=== PATIENT | male | born 1965 | race African-American/Black ===

== ENCOUNTER 2017-08-02 07:07 | Day surgery (SDC) | payer OTHER ==
[2017-07-31 14:45] VITALS: BMI 29.8
[2017-08-02] MEDS ORDERED: DEXAMETHASONE SOD PHOSPHATE/PF 10 MG/ML SDV ONE (08:42)
[2017-08-02] MEDS ORDERED: MIDAZOLAM HCL 2 MG/2 ML SINGLE DOSE VIAL ONE ×4 (08:52→10:12)
[2017-08-02] MEDS ORDERED: ceFAZolin SODIUM 1 GM VIAL ONE (09:46)
[2017-08-02] MEDS ORDERED: oxyCODONE HCL 10 MG SUSTAINED ACTING TABLET PO ONE (10:34)
[2017-08-02] MEDS ORDERED: oxyCODONE HCL 5 MG TABLET PO PRN ×3 (10:34→11:28)
--- NOTE | 2017-08-02 10:41 | OP ---
Operative Note - Note: Operative Date: 08/02/17 Pre-Operative Diagnosis: Left shoulder degenerative cuff disease, AC Joint OA Operation: Left shoulder arthroscopy .... distal clavicle excision, decompression, debridement Post-Operative Diagnosis: Same as Pre-op Surgeon: Roman Solis Anesthesiologist/OUTSIDE SALES CONSULTANT: Enoch Rios Anesthesia: General Operative Report Dictated: Yes
--- NOTE | 2017-08-02 10:41 | DS ---
Physical Examination Vital Signs: Vital Signs Temperature 98.3 F 08/02/17 07:40 Pulse Rate 72 08/02/17 07:40 Respiratory Rate 16 08/02/17 07:40 Blood Pressure 144/90 08/02/17 07:40 O2 Sat by Pulse Oximetry (%) 97 08/02/17 07:54 Discharge Summary Reason For Visit: LT SHOULDER AC JOINT ARTHROSIS, RTC TEAR, BICEPS T Condition: Good - Instructions Diet, Activity, Other Instructions: Post Operative Instructions: Shoulder Arthroscopy Dr Roman Solis 1. Pain following a Shoulder Arthroscopy is variable and can be significant. Some patients will have more pain than others. You have been provided with a prescription for medication that contains a narcotic. You are not allowed to drive while on this medication. You should NOT take Tylenol (Acetaminophen) when taking the pain medication ( it will result in an overdose). Feel free to take medications such as Ibuprofen or Naprosyn in addition to the pain medicine if you do not have any problems with the NSAID class of medications. 2. Apply ice to the shoulder for 15 minutes every hour. You may continue this for as many days as necessary. 3. You may find sleeping on an incline (reclining chair) to be more comfortable for the first few days. 4. You may remove your sling when the arm is comfortable. 5. You may use the arm as tolerated. 6. You may remove the bandages in 48 hours. You may shower at that point. 7. Place band-aids on the incisions after your shower.Do not put any creams or lotions on the incision until after the sutures are removed. 8. Please call the office to schedule a visit to have your sutures removed. 9. If for any reason you believe you may have an infection or are concerned, please feel free to call me. I can be reached through our office number 24 hours a day. 10. Please call our office with any questions; we will review the surgical findings during your post-operative visit. Disposition: HOME - Home Medications Comprehensive Discharge Medication List: Ambulatory Orders Atorvastatin Ca [Lipitor] 80 mg PO DAILY 12/16/14 Celecoxib [Celebrex] 200 mg PO DAILY 12/16/14 Clopidogrel Bisulfate [Plavix -] 75 mg PO DAILY 12/16/14 Lansoprazole [Prevacid -] 30 mg PO DAILY 12/16/14 Oxycodone HCl [Oxycodone HCl ER] 10 mg PO Q4H PRN #100 tab.er.12h 12/17/14 Apixaban [Eliquis] 7.5 mg PO BID 07/31/17 Tamsulosin HCl 0.4 mg PO DAILY 07/31/17
--- NOTE | 2017-08-02 10:47 | SURG ---
Surgery Rail Car Operator Note Rail Car Operator: Jonas Zheng PA-C Date of Service: 08/02/17 Diagnosis: Left shoulder degenerative cuff disease, AC Joint OA Procedure: Left shoulder arthroscopy, distal clavicle excision, decompression, debridement I was present for the entirety of the operative procedure. For further detail, please refer to operative report. Visit type - Case Type Case Type: Scheduled Admission - New patient This patient is new to me today: Yes Date on this admission: 08/02/17
[2017-08-02] MEDS ORDERED: ONDANSETRON 4 MG/2 ML VIAL IVPUSH PRN (12:30)
[2017-08-02 14:07] VITALS: TEMP 98
[2017-08-02 14:20] VITALS: BP 135/81; PULSE 71
--- NOTE | 2017-08-05 15:39 | PATH ---
Surgical Pathology Report Patient Name: SHARON RODRIGUEZ [facility]. Rec. #: [id number] /Age/Gender: 1965 (Age: 52) / M Account: [id number] Location: [facility] Taken: 08/02/2017 Received: 08/02/2017 Reported: 08/05/2017 Physicians: Roman Solis M.D. Specimen(s) Received SHAVINGS LEFT SHOULDER Clinical History Left shoulder AC joint arthrosis, RTC tear Final Diagnosis SHOULDER, LEFT, ARTHROSCOPIC SHAVINGS: FRAGMENTS OF CARTILAGE, BONE AND FIBROSYNOVIALTISSUE. Electronically Signed Cindy Stephens M.D. Gross Description Received in formalin, labeled "shavings left shoulder," is a 2.0 x 2.0 x 0.4 cm. aggregate of giles-yellow soft tissue fragments. Totally submitted in one cassette. [facility]/08/02/2017 [facility]/08/02/2017
== END 2017-08-02 12:30 | disposition home or self-care (01) ==
LOC: FASU 07:07
PROVIDERS: ATTEND Orthopaedic Surgery
PROC: 0PBB4ZZ Excision of Left Clavicle, Percutaneous Endoscopic Approach (ICD-10-PCS; principal; 2017-08-02 09:56)
PROC: 0RBK4ZZ Excision of Left Shoulder Joint, Percutaneous Endoscopic Approach (ICD-10-PCS; 2017-08-02 09:56)
DX: M19.012 Primary osteoarthritis, left shoulder (principal); M75.52 Bursitis of left shoulder; M75.102 Unspecified rotator cuff tear or rupture of left shoulder, not specified as traumatic
CPT/HCPCS: 88304-TC; 94760

== ENCOUNTER 2018-01-24 07:45 | Day surgery (SDC) | payer OTHER ==
[2018-01-24 08:37] VITALS: BMI 31.8
[2018-01-24 13:45] VITALS: TEMP 98.6
[2018-01-24 14:16] VITALS: BP 128/72; PULSE 72
== END 2018-01-24 14:18 | disposition home or self-care (01) ==
LOC: FASU 07:45
PROVIDERS: ATTEND Orthopaedic Surgery
PROC: 0LQ24ZZ Repair Left Shoulder Tendon, Percutaneous Endoscopic Approach (ICD-10-PCS; principal; 2018-01-24)
PROC: 0RNK4ZZ Release Left Shoulder Joint, Percutaneous Endoscopic Approach (ICD-10-PCS; 2018-01-24)
PROC: 0PBB4ZZ Excision of Left Clavicle, Percutaneous Endoscopic Approach (ICD-10-PCS; 2018-01-24)
DX: M75.102 Unspecified rotator cuff tear or rupture of left shoulder, not specified as traumatic (principal); M19.012 Primary osteoarthritis, left shoulder
CPT/HCPCS: 88304-TC; 94760

== ENCOUNTER 2021-11-06 12:58 | Inpatient (IN) | payer OTHER ==
[2021-11-06] MEDS ORDERED: PIPERACILLIN/TAZOB 3.375 GM 3.375 GM in DEXTROSE 5%-WATER - 50 ML IVPB ONE (13:41)
[2021-11-06] MEDS ORDERED: VANCOMYCIN 1 GRAM (PRE-DOCKED) 1,000 MG/250 ML BAG IVPB ONE (13:59)
[2021-11-06] MEDS ORDERED: PIPERACILLIN/TAZOB 3.375 GM 3.375 GM/50 ML BAG IVPB ONE (13:59)
[2021-11-06] MEDS ORDERED: VANCOMYCIN 1,000 MG in DEXTROSE 5%-WATER - 250 ML IVPB ONE (15:10)
[2021-11-06 15:19] LABS: BASO % 0.6 % (0-2.0); EOS % 0.7 % (0-4.5); HEMATOCRIT 38.3 % (35.4-49); HEMOGLOBIN 12.3 GM/dL (11.7-16.9); LYMPH % 36.5 % (8-40); MCH 29.5 pg (25.7-33.7); MCHC 32.1 g/dl (32.0-35.9); MEAN CELL VOLUME 91.8 fl (80-96); MEAN PLT VOLUME 9.2 fl (7.5-11.1); MONO % 8.2 % (3.8-10.2); PLATELET COUNT 187 10^3/uL (134-434); RBC 4.17 M/mm3 (4.00-5.60); RDW 14.1 % (11.9-15.9); WHITE BLOOD COUNT 5.5 K/mm3 (4.0-10.0)
[2021-11-06 15:26] LABS: INR 1.13 (0.83-1.09)
[2021-11-06 15:28] LABS: ACTIVATED PTT 35.4 SECONDS (25.2-36.5)
[2021-11-06 15:43] LABS: CALCIUM 9.2 mg/dL (8.5-10.1)
[2021-11-06 15:44] LABS: ALBUMIN 3.6 g/dl (3.4-5.0); BLOOD UREA NITROGEN 16.4 mg/dL (7-18)
[2021-11-06 15:47] LABS: CREATININE 0.8 mg/dL (0.55-1.3)
[2021-11-06 15:48] LABS: BILIRUBIN,TOTAL 0.4 mg/dL (0.2-1)
[2021-11-06 15:49] LABS: TOT PROT 6.5 g/dl (6.4-8.2)
[2021-11-06] MEDS ORDERED: ACETAMINOPHEN 1000 MG/100 ML BAG IVPB PRN (17:44)
[2021-11-06] MEDS ORDERED: NICOTINE 14 MG/24 HOURS TOPICAL PATCH TD ONE (17:44)
[2021-11-06] MEDS: NICOTINE 21 MG/24 HOURS TOPICAL PATCH TD SCH (19:48)
[2021-11-06] MEDS ORDERED: PIPERACILLIN/TAZOBACTAM 4.5 GM VIAL IVPB ONE (21:00)
[2021-11-06] MEDS ORDERED: DEXTROSE 5%-WATER 100 ML IVPB ONE (21:00)
[2021-11-06] MEDS: oxyCODONE HCL 5 MG TABLET PO PRN (21:05)
[2021-11-06] MEDS: APIXABAN 5 MG TABLET PO SCH (21:05)
[2021-11-06] MEDS: ATORVASTATIN CA 80 MG TABLET (FP) PO SCH (21:05)
[2021-11-06] MEDS ORDERED: APIXABAN 5 MG TABLET PO SCH (22:00)
[2021-11-06] MEDS: PIPERACILLIN/TAZOB 4.5 GM 4.5 GM in DEXTROSE 5%-WATER 100 ML IVPB SCH (22:26)
[2021-11-07 00:28] VITALS: BMI 30.9
[2021-11-07] MEDS ORDERED: PIPERACILLIN/TAZOBACTAM 4.5 GM VIAL IVPB ONE (04:22)
[2021-11-07] MEDS ORDERED: DEXTROSE 5%-WATER 100 ML IVPB ONE (04:23)
[2021-11-07] MEDS: PIPERACILLIN/TAZOB 4.5 GM 4.5 GM in DEXTROSE 5%-WATER 100 ML IVPB SCH ×4 (04:39→09:45)
[2021-11-07] MEDS ORDERED: APIXABAN 5 MG TABLET ONE (06:24)
[2021-11-07] MEDS ORDERED: APIXABAN 2.5 MG TABLET ONE (06:25)
[2021-11-07] MEDS: APIXABAN PO SCH (06:26)
[2021-11-07] MEDS: TAMSULOSIN HCL 0.4 MG CAP PO SCH (06:30)
[2021-11-07] MEDS ORDERED: DEXTROSE 5%-WATER - 50 ML IVPB ONE ×2 (09:37→18:53)
[2021-11-07] MEDS ORDERED: PIPERACILLIN/TAZOBACTAM 3.375 GM VIAL IVPB ONE ×2 (09:37→18:53)
[2021-11-07] MEDS: NICOTINE 21 MG/24 HOURS TOPICAL PATCH TD SCH (09:47)
[2021-11-07] MEDS: oxyCODONE HCL 5 MG TABLET PO PRN ×2 (09:47→16:47)
[2021-11-07] MEDS: PIPERACILLIN/TAZOB 3.375 GM 3.375 GM in DEXTROSE 5%-WATER - 50 ML IVPB SCH ×2 (09:48→19:00)
[2021-11-07 10:24] LABS: BASO % 0.3 % (0-2.0); EOS % 1.8 % (0-4.5); HEMATOCRIT 39.1 % (35.4-49); HEMOGLOBIN 12.3 GM/dL (11.7-16.9); LYMPH % 38.2 % (8-40); MCH 29.1 pg (25.7-33.7); MCHC 31.3 g/dl (32.0-35.9); MEAN CELL VOLUME 92.9 fl (80-96); MEAN PLT VOLUME 9.3 fl (7.5-11.1); MONO % 8.9 % (3.8-10.2); NEUT % 50.8 % (42.8-82.8); PLATELET COUNT 172 10^3/uL (134-434); RBC 4.21 M/mm3 (4.00-5.60); RDW 14.4 % (11.9-15.9); WHITE BLOOD COUNT 4.8 K/mm3 (4.0-10.0)
[2021-11-07 10:45] LABS: ALBUMIN 3.4 g/dl (3.4-5.0); BLOOD UREA NITROGEN 13.6 mg/dL (7-18); CALCIUM 9.4 mg/dL (8.5-10.1); MAGNESIUM 2.3 mg/dL (1.8-2.4)
[2021-11-07 10:48] LABS: CREATININE 0.9 mg/dL (0.55-1.3); PHOSPHOROUS 4.1 mg/dL (2.5-4.9)
[2021-11-07 10:50] LABS: BILIRUBIN,TOTAL 0.5 mg/dL (0.2-1); TOT PROT 6.3 g/dl (6.4-8.2)
[2021-11-07] MEDS ORDERED: NICOTINE 14 MG/24 HOURS TOPICAL PATCH TD ONE (14:13)
[2021-11-07] MEDS: POLYETHYLENE GLYCOL (HEALTHYLAX) 3350 17 GM PACKET PO PRN (15:12)
[2021-11-07] MEDS: DOCUSATE SODIUM 100 MG CAPSULE (FP) PO SCH (15:12)
[2021-11-07] MEDS: CALCIUM ACETATE/AL SULFATE TOP 1.9 GM/PACKET PACKET TP SCH (19:22)
[2021-11-07] MEDS: AMMONIUM LACTATE 12% LOTION 225 GM BOTTLE TP SCH (19:23)
[2021-11-07] MEDS: APIXABAN 5 MG TABLET PO SCH (21:52)
[2021-11-07] MEDS: ATORVASTATIN CA 80 MG TABLET (FP) PO SCH (21:52)
[2021-11-08] MEDS ORDERED: PIPERACILLIN/TAZOBACTAM 3.375 GM VIAL IVPB ONE ×3 (01:11→17:46)
[2021-11-08] MEDS ORDERED: DEXTROSE 5%-WATER - 50 ML IVPB ONE ×3 (01:11→17:46)
[2021-11-08] MEDS: PIPERACILLIN/TAZOB 3.375 GM 3.375 GM in DEXTROSE 5%-WATER - 50 ML IVPB SCH ×3 (02:09→17:52)
[2021-11-08] MEDS ORDERED: APIXABAN 2.5 MG TABLET ONE (06:03)
[2021-11-08] MEDS ORDERED: APIXABAN 5 MG TABLET ONE (06:03)
[2021-11-08] MEDS: oxyCODONE HCL 5 MG TABLET PO PRN ×2 (06:13→16:25)
[2021-11-08] MEDS: APIXABAN PO SCH (06:13)
[2021-11-08] MEDS: TAMSULOSIN HCL 0.4 MG CAP PO SCH (06:32)
[2021-11-08] MEDS: NICOTINE 21 MG/24 HOURS TOPICAL PATCH TD SCH (09:22)
[2021-11-08] MEDS: DOCUSATE SODIUM 100 MG CAPSULE (FP) PO SCH (09:22)
[2021-11-08 09:48] LABS: BASO % 0.4 % (0-2.0); HEMATOCRIT 38.6 % (35.4-49); HEMOGLOBIN 12.8 GM/dL (11.7-16.9); LYMPH % 38.5 % (8-40); MCH 30.2 pg (25.7-33.7); MCHC 33.2 g/dl (32.0-35.9); MEAN CELL VOLUME 90.9 fl (80-96); MEAN PLT VOLUME 8.8 fl (7.5-11.1); MONO % 10.8 % (3.8-10.2); NEUT % 48.3 % (42.8-82.8); PLATELET COUNT 162 10^3/uL (134-434); RBC 4.24 M/mm3 (4.00-5.60); RDW 14.4 % (11.9-15.9); WHITE BLOOD COUNT 4.5 K/mm3 (4.0-10.0)
[2021-11-08] MEDS: POLYETHYLENE GLYCOL (HEALTHYLAX) 3350 17 GM PACKET PO PRN (09:53)
[2021-11-08 10:53] LABS: MAGNESIUM 2.3 mg/dL (1.8-2.4)
[2021-11-08 10:54] LABS: ALBUMIN 3.7 g/dl (3.4-5.0); BLOOD UREA NITROGEN 12.7 mg/dL (7-18); CALCIUM 9.7 mg/dL (8.5-10.1)
[2021-11-08 10:55] LABS: CREATININE 0.9 mg/dL (0.55-1.3)
[2021-11-08 10:59] LABS: BILIRUBIN,TOTAL 0.5 mg/dL (0.2-1); TOT PROT 6.7 g/dl (6.4-8.2)
[2021-11-08] MEDS: AMMONIUM LACTATE 12% LOTION 225 GM BOTTLE TP SCH (15:37)
[2021-11-08] MEDS: CALCIUM ACETATE/AL SULFATE TOP 1.9 GM/PACKET PACKET TP SCH (15:37)
[2021-11-08] MEDS: COLLAGENASE CLOSTRIDIUM HIST. 30 GRAMS TUBE TP SCH (17:52)
[2021-11-08] MEDS: APIXABAN 5 MG TABLET PO SCH (21:50)
[2021-11-08] MEDS: ATORVASTATIN CA 80 MG TABLET (FP) PO SCH (21:50)
[2021-11-09] MEDS ORDERED: PIPERACILLIN/TAZOBACTAM 3.375 GM VIAL IVPB ONE ×3 (00:09→17:16)
[2021-11-09] MEDS ORDERED: DEXTROSE 5%-WATER - 50 ML IVPB ONE ×3 (00:10→17:16)
[2021-11-09] MEDS: PIPERACILLIN/TAZOB 3.375 GM 3.375 GM in DEXTROSE 5%-WATER - 50 ML IVPB SCH ×3 (02:06→18:06)
[2021-11-09] MEDS: oxyCODONE HCL 5 MG TABLET PO PRN ×3 (02:21→18:06)
[2021-11-09] MEDS ORDERED: APIXABAN 5 MG TABLET ONE (04:53)
[2021-11-09] MEDS ORDERED: APIXABAN 2.5 MG TABLET ONE (04:54)
[2021-11-09] MEDS: APIXABAN PO SCH (05:59)
[2021-11-09] MEDS: TAMSULOSIN HCL 0.4 MG CAP PO SCH (07:26)
[2021-11-09 09:24] LABS: BASO % 0.4 % (0-2.0); EOS % 1.9 % (0-4.5); HEMATOCRIT 39.3 % (35.4-49); HEMOGLOBIN 12.6 GM/dL (11.7-16.9); LYMPH % 39.8 % (8-40); MCH 29.6 pg (25.7-33.7); MEAN CELL VOLUME 92.6 fl (80-96); MONO % 9.3 % (3.8-10.2); NEUT % 48.6 % (42.8-82.8); PLATELET COUNT 176 10^3/uL (134-434); RBC 4.24 M/mm3 (4.00-5.60); WHITE BLOOD COUNT 4.6 K/mm3 (4.0-10.0)
[2021-11-09 10:05] LABS: CALCIUM 9.3 mg/dL (8.5-10.1)
[2021-11-09 10:06] LABS: ALBUMIN 3.7 g/dl (3.4-5.0); BLOOD UREA NITROGEN 13.8 mg/dL (7-18); MAGNESIUM 2.4 mg/dL (1.8-2.4)
[2021-11-09 10:09] LABS: CREATININE 0.8 mg/dL (0.55-1.3); PHOSPHOROUS 4.2 mg/dL (2.5-4.9)
[2021-11-09 10:11] LABS: TOT PROT 6.6 g/dl (6.4-8.2)
[2021-11-09 10:33] LABS: BILIRUBIN,TOTAL 0.6 mg/dL (0.2-1)
[2021-11-09] MEDS: DOCUSATE SODIUM 100 MG CAPSULE (FP) PO SCH (12:07)
[2021-11-09] MEDS: NICOTINE 21 MG/24 HOURS TOPICAL PATCH TD SCH (12:07)
[2021-11-09] MEDS: AMMONIUM LACTATE 12% LOTION 225 GM BOTTLE TP SCH (12:09)
[2021-11-09] MEDS: COLLAGENASE CLOSTRIDIUM HIST. 30 GRAMS TUBE TP SCH (12:09)
[2021-11-09] MEDS: CALCIUM ACETATE/AL SULFATE TOP 1.9 GM/PACKET PACKET TP SCH (12:29)
[2021-11-09] MEDS: ATORVASTATIN CA 80 MG TABLET (FP) PO SCH (21:34)
[2021-11-09] MEDS: APIXABAN 5 MG TABLET PO SCH (21:34)
[2021-11-10] MEDS ORDERED: DEXTROSE 5%-WATER - 50 ML IVPB ONE ×3 (00:57→18:06)
[2021-11-10] MEDS ORDERED: PIPERACILLIN/TAZOBACTAM 3.375 GM VIAL IVPB ONE ×3 (00:57→18:06)
[2021-11-10] MEDS: oxyCODONE HCL 5 MG TABLET PO PRN ×4 (01:11→22:06)
[2021-11-10] MEDS: PIPERACILLIN/TAZOB 3.375 GM 3.375 GM in DEXTROSE 5%-WATER - 50 ML IVPB SCH ×3 (01:12→18:17)
[2021-11-10] MEDS ORDERED: APIXABAN 5 MG TABLET ONE (05:40)
[2021-11-10] MEDS ORDERED: APIXABAN 2.5 MG TABLET ONE (05:40)
[2021-11-10] MEDS: APIXABAN PO SCH (06:32)
[2021-11-10] MEDS: TAMSULOSIN HCL 0.4 MG CAP PO SCH (06:32)
[2021-11-10] MEDS: NICOTINE 21 MG/24 HOURS TOPICAL PATCH TD SCH (09:21)
[2021-11-10] MEDS: DOCUSATE SODIUM 100 MG CAPSULE (FP) PO SCH (09:21)
[2021-11-10 10:01] LABS: BASO % 0.3 % (0-2.0); EOS % 2.1 % (0-4.5); HEMATOCRIT 41.9 % (35.4-49); HEMOGLOBIN 13.4 GM/dL (11.7-16.9); LYMPH % 38.8 % (8-40); MCH 29.7 pg (25.7-33.7); MCHC 32.1 g/dl (32.0-35.9); MEAN CELL VOLUME 92.5 fl (80-96); MEAN PLT VOLUME 9.2 fl (7.5-11.1); MONO % 6.8 % (3.8-10.2); PLATELET COUNT 188 10^3/uL (134-434); RBC 4.53 M/mm3 (4.00-5.60); RDW 14.3 % (11.9-15.9); WHITE BLOOD COUNT 4.4 K/mm3 (4.0-10.0)
[2021-11-10 10:22] LABS: BLOOD UREA NITROGEN 15.9 mg/dL (7-18); CALCIUM 9.7 mg/dL (8.5-10.1); MAGNESIUM 2.3 mg/dL (1.8-2.4)
[2021-11-10 10:25] LABS: CREATININE 0.9 mg/dL (0.55-1.3); PHOSPHOROUS 4.7 mg/dL (2.5-4.9)
[2021-11-10 10:27] LABS: BILIRUBIN,TOTAL 0.4 mg/dL (0.2-1); TOT PROT 7.2 g/dl (6.4-8.2)
[2021-11-10] MEDS: DOCUSATE SODIUM 100 MG CAPSULE (FP) PO PRN ×2 (16:46→21:52)
[2021-11-10] MEDS: CALCIUM ACETATE/AL SULFATE TOP 1.9 GM/PACKET PACKET TP SCH (17:38)
[2021-11-10] MEDS: COLLAGENASE CLOSTRIDIUM HIST. 30 GRAMS TUBE TP SCH (17:38)
[2021-11-10] MEDS: AMMONIUM LACTATE 12% LOTION 225 GM BOTTLE TP SCH (17:38)
[2021-11-10] MEDS: APIXABAN 5 MG TABLET PO SCH (21:52)
[2021-11-10] MEDS: MELATONIN 5 MG TABLETS PO PRN (21:52)
[2021-11-10] MEDS: ATORVASTATIN CA 80 MG TABLET (FP) PO SCH (21:52)
[2021-11-11] MEDS ORDERED: DEXTROSE 5%-WATER - 50 ML IVPB ONE ×4 (00:55→23:27)
[2021-11-11] MEDS ORDERED: PIPERACILLIN/TAZOBACTAM 3.375 GM VIAL IVPB ONE ×4 (00:55→23:25)
[2021-11-11] MEDS: PIPERACILLIN/TAZOB 3.375 GM 3.375 GM in DEXTROSE 5%-WATER - 50 ML IVPB SCH ×3 (01:16→17:12)
[2021-11-11] MEDS ORDERED: APIXABAN 2.5 MG TABLET ONE (05:54)
[2021-11-11] MEDS ORDERED: APIXABAN 5 MG TABLET ONE (05:54)
[2021-11-11] MEDS: APIXABAN PO SCH (06:28)
[2021-11-11] MEDS: TAMSULOSIN HCL 0.4 MG CAP PO SCH (06:30)
[2021-11-11] MEDS: oxyCODONE HCL 5 MG TABLET PO PRN ×4 (08:30→23:39)
[2021-11-11 09:26] LABS: BASO % 0.3 % (0-2.0); EOS % 2.9 % (0-4.5); HEMATOCRIT 38.9 % (35.4-49); HEMOGLOBIN 12.9 GM/dL (11.7-16.9); LYMPH % 31.4 % (8-40); MCH 30.3 pg (25.7-33.7); MCHC 33.2 g/dl (32.0-35.9); MEAN CELL VOLUME 91.2 fl (80-96); MEAN PLT VOLUME 8.9 fl (7.5-11.1); MONO % 11.4 % (3.8-10.2); PLATELET COUNT 158 10^3/uL (134-434); RBC 4.26 M/mm3 (4.00-5.60); RDW 14.2 % (11.9-15.9); WHITE BLOOD COUNT 4.2 K/mm3 (4.0-10.0)
[2021-11-11] MEDS: NICOTINE 21 MG/24 HOURS TOPICAL PATCH TD SCH (09:42)
[2021-11-11] MEDS: DOCUSATE SODIUM 100 MG CAPSULE (FP) PO SCH (09:42)
[2021-11-11 09:48] LABS: ALBUMIN 3.8 g/dl (3.4-5.0)
[2021-11-11 09:51] LABS: CALCIUM 9.4 mg/dL (8.5-10.1)
[2021-11-11 09:52] LABS: BLOOD UREA NITROGEN 16.4 mg/dL (7-18)
[2021-11-11 09:53] LABS: CREATININE 0.8 mg/dL (0.55-1.3); PHOSPHOROUS 3.9 mg/dL (2.5-4.9)
[2021-11-11 09:54] LABS: MAGNESIUM 2.3 mg/dL (1.8-2.4); TOT PROT 6.7 g/dl (6.4-8.2)
[2021-11-11 10:00] LABS: BILIRUBIN,TOTAL 0.3 mg/dL (0.2-1)
[2021-11-11] MEDS: ACETAMINOPHEN 325 MG TABLET (FP) PO PRN ×2 (13:11→16:52)
[2021-11-11] MEDS: CALCIUM ACETATE/AL SULFATE TOP 1.9 GM/PACKET PACKET TP SCH (13:15)
[2021-11-11] MEDS: COLLAGENASE CLOSTRIDIUM HIST. 30 GRAMS TUBE TP SCH (13:22)
[2021-11-11] MEDS: AMMONIUM LACTATE 12% LOTION 225 GM BOTTLE TP SCH (13:22)
[2021-11-11] MEDS: APIXABAN 5 MG TABLET PO SCH (21:52)
[2021-11-11] MEDS: ATORVASTATIN CA 80 MG TABLET (FP) PO SCH (21:52)
[2021-11-11] MEDS: MELATONIN 5 MG TABLETS PO PRN (21:53)
[2021-11-11] MEDS: ACETAMINOPHEN 500 MG TABLET (FP) PO PRN (23:34)
[2021-11-12] MEDS: PIPERACILLIN/TAZOB 3.375 GM 3.375 GM in DEXTROSE 5%-WATER - 50 ML IVPB SCH ×3 (02:02→17:58)
[2021-11-12] MEDS ORDERED: APIXABAN 5 MG TABLET ONE (05:09)
[2021-11-12] MEDS ORDERED: APIXABAN 2.5 MG TABLET ONE (05:10)
[2021-11-12] MEDS: ACETAMINOPHEN 500 MG TABLET (FP) PO PRN ×2 (05:45→13:09)
[2021-11-12] MEDS: APIXABAN PO SCH (06:17)
[2021-11-12] MEDS: NICOTINE 21 MG/24 HOURS TOPICAL PATCH TD SCH (09:07)
[2021-11-12] MEDS: TAMSULOSIN HCL 0.4 MG CAP PO SCH (09:07)
[2021-11-12] MEDS: DOCUSATE SODIUM 100 MG CAPSULE (FP) PO SCH (09:07)
[2021-11-12] MEDS ORDERED: PIPERACILLIN/TAZOBACTAM 3.375 GM VIAL IVPB ONE ×2 (09:37→17:29)
[2021-11-12] MEDS ORDERED: DEXTROSE 5%-WATER - 50 ML IVPB ONE ×2 (09:37→17:29)
[2021-11-12] MEDS: oxyCODONE HCL 5 MG TABLET PO PRN ×3 (09:43→19:47)
[2021-11-12] MEDS: AMMONIUM LACTATE 12% LOTION 225 GM BOTTLE TP SCH (13:08)
[2021-11-12] MEDS: COLLAGENASE CLOSTRIDIUM HIST. 30 GRAMS TUBE TP SCH (13:08)
[2021-11-12] MEDS: CALCIUM ACETATE/AL SULFATE TOP 1.9 GM/PACKET PACKET TP SCH (13:09)
[2021-11-12] MEDS: ACETAMINOPHEN 325 MG TABLET (FP) PO PRN (18:04)
[2021-11-12] MEDS: APIXABAN 5 MG TABLET PO SCH (21:50)
[2021-11-12] MEDS: ATORVASTATIN CA 80 MG TABLET (FP) PO SCH (21:50)
[2021-11-12] MEDS: MELATONIN 5 MG TABLETS PO PRN (21:50)
[2021-11-13] MEDS ORDERED: PIPERACILLIN/TAZOBACTAM 3.375 GM VIAL IVPB ONE ×3 (01:07→17:03)
[2021-11-13] MEDS ORDERED: DEXTROSE 5%-WATER - 50 ML IVPB ONE ×3 (01:07→17:03)
[2021-11-13] MEDS: PIPERACILLIN/TAZOB 3.375 GM 3.375 GM in DEXTROSE 5%-WATER - 50 ML IVPB SCH ×3 (01:35→17:06)
[2021-11-13] MEDS ORDERED: APIXABAN 2.5 MG TABLET ONE (04:59)
[2021-11-13] MEDS ORDERED: APIXABAN 5 MG TABLET ONE (04:59)
[2021-11-13] MEDS: APIXABAN PO SCH (06:28)
[2021-11-13] MEDS: oxyCODONE HCL 5 MG TABLET PO PRN ×3 (06:49→21:41)
[2021-11-13] MEDS: ACETAMINOPHEN 325 MG TABLET (FP) PO PRN ×2 (06:50→13:13)
[2021-11-13] MEDS: TAMSULOSIN HCL 0.4 MG CAP PO SCH (09:55)
[2021-11-13] MEDS: DOCUSATE SODIUM 100 MG CAPSULE (FP) PO SCH (09:56)
[2021-11-13] MEDS: NICOTINE 21 MG/24 HOURS TOPICAL PATCH TD SCH (10:07)
[2021-11-13] MEDS: ACETAMINOPHEN 500 MG TABLET (FP) PO PRN ×2 (10:07→17:06)
[2021-11-13] MEDS: AMMONIUM LACTATE 12% LOTION 225 GM BOTTLE TP SCH (17:07)
[2021-11-13] MEDS: CALCIUM ACETATE/AL SULFATE TOP 1.9 GM/PACKET PACKET TP SCH (17:07)
[2021-11-13] MEDS: COLLAGENASE CLOSTRIDIUM HIST. 30 GRAMS TUBE TP SCH (17:07)
[2021-11-13] MEDS: ATORVASTATIN CA 80 MG TABLET (FP) PO SCH (21:41)
[2021-11-13] MEDS: MELATONIN 5 MG TABLETS PO PRN (21:41)
[2021-11-14] MEDS ORDERED: DEXTROSE 5%-WATER - 50 ML IVPB ONE ×3 (00:51→19:06)
[2021-11-14] MEDS ORDERED: PIPERACILLIN/TAZOBACTAM 3.375 GM VIAL IVPB ONE ×4 (00:51→19:06)
[2021-11-14] MEDS: PIPERACILLIN/TAZOB 3.375 GM 3.375 GM in DEXTROSE 5%-WATER - 50 ML IVPB SCH ×4 (01:35→19:11)
[2021-11-14] MEDS ORDERED: PROPOFOL 20 ML ONE ×3 (07:17)
[2021-11-14] MEDS ORDERED: MIDAZOLAM HCL 2 MG/2 ML SINGLE DOSE VIAL ONE (07:17)
[2021-11-14] MEDS ORDERED: SUCCINYLCHOLINE CHLORIDE 200 MG/10 ML SYRINGE ONE (07:18)
[2021-11-14] MEDS: TAMSULOSIN HCL 0.4 MG CAP PO SCH (07:30)
[2021-11-14] MEDS ORDERED: ceFAZolin SODIUM 1 GM VIAL IVPB ONE (08:05)
[2021-11-14] MEDS ORDERED: MINERAL OIL 25 ML OIL TP ONE (08:16)
[2021-11-14] MEDS ORDERED: LACTATED RINGERS SOLUTION 1,000 ML IV SCH ×2 (09:30→10:02)
[2021-11-14] MEDS ORDERED: oxyCODONE HCL 5 MG TABLET PO PRN (10:02)
[2021-11-14] MEDS ORDERED: ACETAMINOPHEN 500 MG TABLET (FP) PO PRN (10:02)
[2021-11-14] MEDS ORDERED: POLYETHYLENE GLYCOL (HEALTHYLAX) 3350 17 GM PACKET PO PRN (10:02)
[2021-11-14] MEDS ORDERED: ACETAMINOPHEN 325 MG TABLET (FP) PO PRN (10:02)
[2021-11-14] MEDS ORDERED: HYDROmorphone HCl 2 MG/ML VIAL ONE ×2 (10:05→10:52)
[2021-11-14] MEDS: HYDROmorphone HCL CARPU-JECT 2 MG/1 ML DISP.SYRIN IVPUSH PRN ×4 (10:08→11:23)
[2021-11-14] MEDS: DOCUSATE SODIUM 100 MG CAPSULE (FP) PO SCH ×2 (11:57→13:06)
[2021-11-14] MEDS: NICOTINE 21 MG/24 HOURS TOPICAL PATCH TD SCH ×2 (11:58→12:50)
[2021-11-14] MEDS: AMMONIUM LACTATE 12% LOTION 225 GM BOTTLE TP SCH (11:58)
[2021-11-14] MEDS: CALCIUM ACETATE/AL SULFATE TOP 1.9 GM/PACKET PACKET TP SCH (11:58)
[2021-11-14] MEDS: COLLAGENASE CLOSTRIDIUM HIST. 30 GRAMS TUBE TP SCH (11:59)
[2021-11-14] MEDS ORDERED: oxyCODONE HCL 5 MG TABLET PO ONE (12:45)
[2021-11-14] MEDS ORDERED: HYDROmorphone HCL CARPU-JECT 2 MG/1 ML DISP.SYRIN IVPUSH PRN (15:32)
[2021-11-14] MEDS: oxyCODONE HCL 5 MG TABLET PO PRN ×2 (16:31→22:10)
[2021-11-14] MEDS ORDERED: PIPERACILLIN/TAZOB 3.375 GM 3.375 GM in DEXTROSE 5%-WATER - 50 ML IVPB SCH (18:00)
[2021-11-14] MEDS ORDERED: APIXABAN 5 MG TABLET PO SCH (22:00)
[2021-11-14] MEDS: ATORVASTATIN CA 80 MG TABLET (FP) PO SCH (22:10)
[2021-11-14] MEDS: DOCUSATE SODIUM 100 MG CAPSULE (FP) PO PRN (22:10)
[2021-11-14] MEDS: MELATONIN 5 MG TABLETS PO PRN (22:11)
[2021-11-15] MEDS ORDERED: PIPERACILLIN/TAZOBACTAM 3.375 GM VIAL IVPB ONE ×3 (01:40→18:29)
[2021-11-15] MEDS ORDERED: DEXTROSE 5%-WATER - 50 ML IVPB ONE ×3 (01:41→18:29)
[2021-11-15] MEDS: PIPERACILLIN/TAZOB 3.375 GM 3.375 GM in DEXTROSE 5%-WATER - 50 ML IVPB SCH ×3 (02:44→18:45)
[2021-11-15] MEDS: TAMSULOSIN HCL 0.4 MG CAP PO SCH (06:35)
[2021-11-15] MEDS: oxyCODONE HCL 5 MG TABLET PO PRN ×3 (07:32→23:12)
[2021-11-15] MEDS ORDERED: NICOTINE 21 MG/24 HOURS TOPICAL PATCH TD SCH ×2 (10:00)
[2021-11-15] MEDS ORDERED: APIXABAN 5 MG TABLET PO SCH ×2 (10:00→22:00)
[2021-11-15 10:22] LABS: BASO % 0.2 % (0-2.0); EOS % 0.4 % (0-4.5); HEMATOCRIT 40.3 % (35.4-49); HEMOGLOBIN 13.5 GM/dL (11.7-16.9); MCH 30.8 pg (25.7-33.7); MCHC 33.6 g/dl (32.0-35.9); MEAN CELL VOLUME 91.6 fl (80-96); MEAN PLT VOLUME 9.1 fl (7.5-11.1); MONO % 6.8 % (3.8-10.2); NEUT % 65.6 % (42.8-82.8); PLATELET COUNT 146 10^3/uL (134-434); RDW 14.6 % (11.9-15.9); WHITE BLOOD COUNT 7.2 K/mm3 (4.0-10.0)
[2021-11-15 10:46] LABS: ALBUMIN 3.9 g/dl (3.4-5.0); BLOOD UREA NITROGEN 12.6 mg/dL (7-18); CALCIUM 9.5 mg/dL (8.5-10.1); MAGNESIUM 2.3 mg/dL (1.8-2.4)
[2021-11-15 10:49] LABS: CREATININE 0.8 mg/dL (0.55-1.3); PHOSPHOROUS 3.7 mg/dL (2.5-4.9)
[2021-11-15 10:51] LABS: BILIRUBIN,TOTAL 0.7 mg/dL (0.2-1); TOT PROT 7.4 g/dl (6.4-8.2)
[2021-11-15] MEDS: DOCUSATE SODIUM 100 MG CAPSULE (FP) PO SCH (11:14)
[2021-11-15] MEDS: CALCIUM ACETATE/AL SULFATE TOP 1.9 GM/PACKET PACKET TP SCH (11:15)
[2021-11-15] MEDS: NICOTINE 21 MG/24 HOURS TOPICAL PATCH TD SCH (11:15)
[2021-11-15] MEDS: AMMONIUM LACTATE 12% LOTION 225 GM BOTTLE TP SCH (11:16)
[2021-11-15] MEDS: ATORVASTATIN CA 80 MG TABLET (FP) PO SCH (23:11)
[2021-11-15] MEDS: MELATONIN 5 MG TABLETS PO PRN (23:12)
[2021-11-15] MEDS: APIXABAN 5 MG TABLET PO SCH (23:12)
[2021-11-16] MEDS ORDERED: PIPERACILLIN/TAZOBACTAM 3.375 GM VIAL IVPB ONE ×3 (02:12→18:52)
[2021-11-16] MEDS ORDERED: DEXTROSE 5%-WATER - 50 ML IVPB ONE ×3 (02:13→18:52)
[2021-11-16] MEDS: PIPERACILLIN/TAZOB 3.375 GM 3.375 GM in DEXTROSE 5%-WATER - 50 ML IVPB SCH ×4 (02:18→19:08)
[2021-11-16] MEDS: TAMSULOSIN HCL 0.4 MG CAP PO SCH (06:35)
[2021-11-16] MEDS: APIXABAN 5 MG TABLET PO SCH ×2 (06:36→21:30)
[2021-11-16] MEDS: oxyCODONE HCL 5 MG TABLET PO PRN ×4 (07:43→21:30)
[2021-11-16 09:28] LABS: BASO % 0.8 % (0-2.0); EOS % 1.2 % (0-4.5); HEMOGLOBIN 13.9 GM/dL (11.7-16.9); LYMPH % 28.6 % (8-40); MCHC 33.9 g/dl (32.0-35.9); MEAN CELL VOLUME 91.4 fl (80-96); MEAN PLT VOLUME 9.4 fl (7.5-11.1); MONO % 7.9 % (3.8-10.2); NEUT % 61.5 % (42.8-82.8); PLATELET COUNT 161 10^3/uL (134-434); RBC 4.49 M/mm3 (4.00-5.60); RDW 14.5 % (11.9-15.9)
[2021-11-16] MEDS: CALCIUM ACETATE/AL SULFATE TOP 1.9 GM/PACKET PACKET TP SCH ×2 (10:08→10:20)
[2021-11-16 10:12] LABS: BLOOD UREA NITROGEN 15.2 mg/dL (7-18); MAGNESIUM 2.1 mg/dL (1.8-2.4)
[2021-11-16 10:15] LABS: CREATININE 0.8 mg/dL (0.55-1.3); PHOSPHOROUS 3.1 mg/dL (2.5-4.9)
[2021-11-16 10:16] LABS: BILIRUBIN,TOTAL 0.5 mg/dL (0.2-1); TOT PROT 7.2 g/dl (6.4-8.2)
[2021-11-16] MEDS: DOCUSATE SODIUM 100 MG CAPSULE (FP) PO SCH (10:20)
[2021-11-16] MEDS: NICOTINE 21 MG/24 HOURS TOPICAL PATCH TD SCH (10:20)
[2021-11-16] MEDS: AMMONIUM LACTATE 12% LOTION 225 GM BOTTLE TP SCH (10:26)
[2021-11-16] MEDS: ATORVASTATIN CA 80 MG TABLET (FP) PO SCH (21:30)
[2021-11-16] MEDS: MELATONIN 5 MG TABLETS PO PRN (21:30)
[2021-11-17] MEDS ORDERED: DEXTROSE 5%-WATER - 50 ML IVPB ONE ×3 (01:36→16:58)
[2021-11-17] MEDS ORDERED: PIPERACILLIN/TAZOBACTAM 3.375 GM VIAL IVPB ONE ×3 (01:36→16:58)
[2021-11-17] MEDS: PIPERACILLIN/TAZOB 3.375 GM 3.375 GM in DEXTROSE 5%-WATER - 50 ML IVPB SCH ×3 (02:21→17:29)
[2021-11-17] MEDS: oxyCODONE HCL 5 MG TABLET PO PRN ×5 (05:30→21:17)
[2021-11-17] MEDS: TAMSULOSIN HCL 0.4 MG CAP PO SCH (06:36)
[2021-11-17] MEDS: APIXABAN 5 MG TABLET PO SCH ×2 (06:36→21:17)
[2021-11-17] MEDS: NICOTINE 21 MG/24 HOURS TOPICAL PATCH TD SCH (10:18)
[2021-11-17] MEDS: DOCUSATE SODIUM 100 MG CAPSULE (FP) PO SCH (10:18)
[2021-11-17] MEDS: CALCIUM ACETATE/AL SULFATE TOP 1.9 GM/PACKET PACKET TP SCH (10:18)
[2021-11-17] MEDS: METOPROLOL TARTRATE 25 MG TABLET (FP) PO SCH (10:18)
[2021-11-17] MEDS: AMMONIUM LACTATE 12% LOTION 225 GM BOTTLE TP SCH ×2 (10:19→10:28)
[2021-11-17] MEDS: MELATONIN 5 MG TABLETS PO PRN (21:16)
[2021-11-17] MEDS: ATORVASTATIN CA 80 MG TABLET (FP) PO SCH (21:17)
[2021-11-18] MEDS ORDERED: DEXTROSE 5%-WATER - 50 ML IVPB ONE ×3 (01:08→17:33)
[2021-11-18] MEDS ORDERED: PIPERACILLIN/TAZOBACTAM 3.375 GM VIAL IVPB ONE ×3 (01:08→17:33)
[2021-11-18] MEDS: PIPERACILLIN/TAZOB 3.375 GM 3.375 GM in DEXTROSE 5%-WATER - 50 ML IVPB SCH ×3 (01:36→17:55)
[2021-11-18] MEDS: oxyCODONE HCL 5 MG TABLET PO PRN ×4 (06:33→20:01)
[2021-11-18] MEDS: TAMSULOSIN HCL 0.4 MG CAP PO SCH (06:33)
[2021-11-18] MEDS: APIXABAN 5 MG TABLET PO SCH ×2 (06:33→21:16)
[2021-11-18] MEDS: DOCUSATE SODIUM 100 MG CAPSULE (FP) PO PRN (06:34)
[2021-11-18] MEDS: METOPROLOL TARTRATE 25 MG TABLET (FP) PO SCH (10:25)
[2021-11-18] MEDS: NICOTINE 21 MG/24 HOURS TOPICAL PATCH TD SCH (10:25)
[2021-11-18] MEDS: CALCIUM ACETATE/AL SULFATE TOP 1.9 GM/PACKET PACKET TP SCH (10:34)
[2021-11-18] MEDS: AMMONIUM LACTATE 12% LOTION 225 GM BOTTLE TP SCH (10:35)
[2021-11-18] MEDS: DOCUSATE SODIUM 100 MG CAPSULE (FP) PO SCH (10:39)
[2021-11-19] MEDS ORDERED: PIPERACILLIN/TAZOBACTAM 3.375 GM VIAL IVPB ONE ×3 (01:11→16:34)
[2021-11-19] MEDS ORDERED: DEXTROSE 5%-WATER - 50 ML IVPB ONE ×3 (01:12→16:35)
[2021-11-19] MEDS: PIPERACILLIN/TAZOB 3.375 GM 3.375 GM in DEXTROSE 5%-WATER - 50 ML IVPB SCH ×3 (01:31→17:04)
[2021-11-19] MEDS: oxyCODONE HCL 5 MG TABLET PO PRN ×5 (06:19→20:40)
[2021-11-19] MEDS: APIXABAN 5 MG TABLET PO SCH ×2 (06:20→21:46)
[2021-11-19] MEDS: TAMSULOSIN HCL 0.4 MG CAP PO SCH (07:00)
[2021-11-19] MEDS: NICOTINE 21 MG/24 HOURS TOPICAL PATCH TD SCH (10:20)
[2021-11-19] MEDS: DOCUSATE SODIUM 100 MG CAPSULE (FP) PO SCH (10:20)
[2021-11-19] MEDS: METOPROLOL TARTRATE 25 MG TABLET (FP) PO SCH (10:20)
[2021-11-19] MEDS: AMMONIUM LACTATE 12% LOTION 225 GM BOTTLE TP SCH (10:21)
[2021-11-19] MEDS: CALCIUM ACETATE/AL SULFATE TOP 1.9 GM/PACKET PACKET TP SCH (10:21)
[2021-11-19] MEDS: MELATONIN 5 MG TABLETS PO PRN (21:46)
[2021-11-20] MEDS ORDERED: PIPERACILLIN/TAZOBACTAM 3.375 GM VIAL IVPB ONE ×2 (01:28→09:37)
[2021-11-20] MEDS ORDERED: DEXTROSE 5%-WATER - 50 ML IVPB ONE ×2 (01:29→09:38)
[2021-11-20] MEDS: PIPERACILLIN/TAZOB 3.375 GM 3.375 GM in DEXTROSE 5%-WATER - 50 ML IVPB SCH ×2 (02:10→10:12)
[2021-11-20] MEDS: APIXABAN 5 MG TABLET PO SCH (06:43)
[2021-11-20] MEDS: TAMSULOSIN HCL 0.4 MG CAP PO SCH (06:43)
[2021-11-20] MEDS: DOCUSATE SODIUM 100 MG CAPSULE (FP) PO SCH (10:10)
[2021-11-20] MEDS: oxyCODONE HCL 5 MG TABLET PO PRN ×2 (10:10→14:06)
[2021-11-20] MEDS: CALCIUM ACETATE/AL SULFATE TOP 1.9 GM/PACKET PACKET TP SCH (10:12)
[2021-11-20] MEDS: NICOTINE 21 MG/24 HOURS TOPICAL PATCH TD SCH (10:12)
[2021-11-20] MEDS: AMMONIUM LACTATE 12% LOTION 225 GM BOTTLE TP SCH (10:12)
[2021-11-20] MEDS: METOPROLOL TARTRATE 25 MG TABLET (FP) PO SCH (10:17)
[2021-11-20 14:27] VITALS: BP 135/64; PULSE 82; TEMP 98.8
== END 2021-11-20 16:40 | disposition home or self-care (01) | DRG 180 ==
LOC: JER 12:58 → JERBED 13:56 → J5S 18:34
PROVIDERS: ADMIT Internal Medicine
PROC: 0HRLX74 Replacement of Left Lower Leg Skin with Autologous Tissue Substitute, Partial Thickness, External Approach (ICD-10-PCS; principal; 2021-11-09)
PROC: 0JBP0ZZ Excision of Left Lower Leg Subcutaneous Tissue and Fascia, Open Approach (ICD-10-PCS; 2021-11-09)
PROC: 2W1MX6Z Compression of Left Lower Extremity using Pressure Dressing (ICD-10-PCS; 2021-11-09)
PROC: 0HBLXZX Excision of Left Lower Leg Skin, External Approach, Diagnostic (ICD-10-PCS; 2021-11-09)
DX: I87.2 Venous insufficiency (chronic) (peripheral) (principal); L97.828 Non-pressure chronic ulcer of other part of left lower leg with other specified severity; G81.94 Hemiplegia, unspecified affecting left nondominant side; L03.116 Cellulitis of left lower limb; N40.0 Benign prostatic hyperplasia without lower urinary tract symptoms; E78.5 Hyperlipidemia, unspecified; D68.59 Other primary thrombophilia; K21.9 Gastro-esophageal reflux disease without esophagitis; I10 Essential (primary) hypertension; K59.00 Constipation, unspecified; I25.2 Old myocardial infarction; F17.200 Nicotine dependence, unspecified, uncomplicated; Z86.718 Personal history of other venous thrombosis and embolism; Z86.711 Personal history of pulmonary embolism
CPT/HCPCS: 36415; 71045-TC-FY; 73590-TC-LT-FY; 73700-TC-RT; 80053; 83735; 84100; 85025; 85610; 85730; 86850; 86900; 86901; 87040; 88304-TC; 88305-TC; 93005; 93010; 93926-TC; 94760; 97116-GP; 97161-GP; 99285-25; C9803; G0463-25; U0003; U0005